=== PATIENT | male | born 1935 | race Caucasian/White ===

== ENCOUNTER 2016-11-23 23:33 | Inpatient (IN) | payer OTHER ==
[~2016-11-23] VITALS: Ht 180.3 cm; Wt 104.0 kg
--- NOTE | ~2016-11-23 | H ---
[facility] [place] [address] HISTORY AND PHYSICAL Name: MIGDALIA LOZANO Room #: 448-P ADM IN M.R.#: [id number] Admission: 11/24/16 Attend Phys: Ania Troy MD Discharge: Date of : 39 Report #: [id number] THIS REPORT FOR: //name// CC: BRII Troy DATE OF SERVICE: 11/24/2016 CHIEF COMPLAINT: Speech difficulty and confusion. HISTORY OF PRESENT ILLNESS: The patient is a 81-year-old gentleman known to me from his hospitalization at [facility]. The patient underwent elective bilateral total knee arthroplasty on 11/23/2016. I had seen him postop and he was doing well. The patient was ambulating with assistance of the therapist. On the evening of November 23, 2016, the patient was noted to have speech difficulty and was not able to make a full sentence. He appeared to be confused. There was some suspicion of a possible stroke and hence patient was transferred to [facility]. The patient had a stroke workup done, which was essentially negative with a CT scan showing chronic white matter changes with no evidence of any acute stroke or acute process. He was also noted to have hyponatremia with a sodium of 120. He did also develop some hypoxia while resting and a CT of the chest done did not reveal any pulmonary embolism, but there was evidence of atelectasis with small pleural effusion. The patient has been admitted to the hospital and is currently on normal saline IV fluids. The patient seems to be still oriented only to person. He does seem to make a sentence, but is still not able to express himself clearly. He denied having any headache or any focal weakness. PAST MEDICAL HISTORY: Significant history of amnesia, memory loss, convulsions, benign prostatic hypertrophy, history of dysphagia, hyperlipidemia, anemia, benign prostatic hypertrophy, hypertension, peripheral neuropathy, coronary artery disease and sick sinus syndrome. PAST SURGICAL HISTORY: Pacemaker implantation. ALLERGIES: He is not known to be allergic to medication. MEDICATION: He was currently on was Keppra 500 mg at bedtime, lisinopril 20 mg daily, amlodipine 5 mg daily and aspirin and patient had received hydrocodone at the orthopedic hospital and the last dose was given about 9:00 on morning of 11/23/2016. SOCIAL HISTORY: He is and drinks alcohol occasionally, does not smoke. He has a friend who was his power of nuclear plant instrument technician and decision maker. [place] [address] HISTORY AND PHYSICAL Name: MIGDALIA LOZANO Room #: 448-P [facility] IN ..#: [id number] Admission: 11/24/16 Attend Phys: Ania Troy MD Discharge: Date of : 39 Report #: [id number] the bedside. REVIEW OF SYSTEMS: He denied having any headache, visual symptoms, nausea, vomiting, chest pain or breathing difficulty or cough. He denied having any abdominal pain or urinary symptoms. The patient reported the pain was controlled. PHYSICAL EXAMINATION: GENERAL: Pleasant elderly gentleman who was oriented only to person. He was following commands. He was in no distress. VITAL SIGNS: He was afebrile with a temperature of 36.6, pulse of 71, respiratory rate 18, blood pressure 149/66, oxygen saturation 93% on 4 liters of oxygen. HEENT: Skull was atraumatic. There were no pallor, no icterus. Mucosa was moist. NECK: Supple. LUNGS: Clear with no wheezing or crackles. There was some diminished air entry in the lung bases. HEART: First and second heart sound, which was normal. ABDOMEN: Soft, it was nontender, bowel sounds normally heard. EXTREMITIES: Examined extremities. The patient had 1+ anemia of his lower extremities. NEUROLOGIC: The patient's speech was still slurred and he had difficulty forming words, but his comprehension was good. He was oriented only to person. All other cranial nerve examination was normal. The patient was moving all 4 extremities equally and normally and there were no focal deficits noted. The patient had dressing on both his knees. There was lower extremity examination revealed 1+ pitting edema of his lower extremities. LABORATORY DATA: On admission showed a sodium of 121, potassium 3.7, chloride of 90, bicarbonate of 23, BUN of 14, creatinine of 0.8 and a glucose was 120, calcium 7.5. Blood gas showed a pH of 7.4, pCO2 of 28, pO2 of 67.5 on room air. Hemoglobin was 11.6, hematocrit 34.9, WBC was 15. CT of the head did not reveal any acute process. There was no acute stroke or bleed noted. A CT of the chest did not reveal any acute PE and there was bilateral atelectasis with small pleural effusion. ASSESSMENT: 1. Metabolic encephalopathy. 2. Hyponatremia. 3. Bilateral total knee arthroplasty. 4. Hypertension. 5. Benign prostatic hypertrophy. 6. Coronary artery disease. 7. Memory loss. 8. History of seizure disorder. [facility] [address] [place] [address] HISTORY AND PHYSICAL Name: MIGDALIA LOZANO Room #: 448-P [facility] IN .R.#: [id number] Admission: 11/24/16 Attend Phys: Ania rToy MD Discharge: Date of : 39 Report #: [id number] PLAN: To restart his blood pressure medications and the Keppra. We will start him on Lovenox for DVT prophylaxis and have physical therapy start him on rehab. We will continue the ice packs and start him on tramadol for pain control and keep him on a regular diet as tolerated. Would also check his urine sodium and urine osmolality. We will stop his IV fluids for now. By: [phone] Ania Troy MD /nt
--- NOTE | ~2016-11-23 | EKG ---
[address] [place] [address] ELECTROCARDIOGRAM REPORT Name: MIGDALIA LOZANO Room #: 448-P [facility] IN M.R.#: [id number] Admission: 11/24/16 Attend Phys: Roger Munroe MD Discharge: Date of : 39 Report #: [id number] THIS REPORT FOR: //name// [facility] ED Test Date: 2016-11-23 Test Time: 23:45:48 Pat Name: MIGDALIA LOZANO Department: Room: [facility] Gender: M Support Services Tech: KATELYN : 1935 Requested By: Tree Espinoza Order Number: [id number] MD: Dale Lugo Measurements Intervals Holcomb Rate: 75 P: 7 KS: 244 QRS: 64 QRSD: 149 T: 28 QT: 397 QTc: 444 Interpretive Statements Sinus rhythm Prolonged KS interval Right bundle branch block No previous ECG available for comparison Electronically Signed On 11-24-2016 7:53:06 CDT by Dale Lugo [email or web address] <ELECTRONICALLY SIGNED> By: Dale Lugo MD, [facility] 11/24/16 [id number] Dale Lugo MD, FACC /EPI
[2016-11-23 23:34] VITALS: BP 169/81
[2016-11-23 23:51] LABS: POC CREATININE 0.9 mg/dL (0.6-1.3); POC HEMOGLOBIN 11.6 g/dL (14.0-18.0)
[2016-11-23 23:55] LABS: HEMATOCRIT 33.2 % (42.0-52.0); HEMOGLOBIN 11.6 gm/dL (14.0-18.0); MANUAL DIFF YES; MCH 30.9 pg (26.0-34.0); MCV 88.3 fL (80.0-100.0); PLATELET COUNT 214 thou/uL (150-400); RBC 3.76 mil/uL (4.50-6.00); RDW 13.3 % (10.5-14.5)
[2016-11-24 00:03] LABS: ANION GAP 9 mmol/L (7-16); BUN 16 mg/dL (7-18); CALCIUM 7.7 mg/dL (8.5-10.1); CHLORIDE 88 mmol/L (98-107); CO2 23 mmol/L (21-32); GLUCOSE 134 mg/dL (74-106); POTASSIUM 3.7 mmol/L (3.5-5.1); SODIUM 120 mmol/L (136-145)
[2016-11-24 00:09] LABS: ALKALINE PHOSPHATASE 59 U/L (46-116); INR 1.1; PROTIME 11.5 Seconds (9.3-11.4); SGOT 39 U/L (15-37); SGPT 24 U/L (30-65); TOTAL BILIRUBIN 1.4 mg/dL (<0.1-1.0); TROPONIN-I < 0.04 ng/mL (<0.04-0.07)
[2016-11-24 00:26] LABS: ABSOLUTE NEUTROPHILS 13.1 thou/uL (1.4-8.2); ANISOCYTOSIS SLIGHT; TOTAL CELL COUNT 100
[2016-11-24] MEDS ORDERED: KEPPRA 500 MG500 M1 (00:58)
[2016-11-24] MEDS ORDERED: NORVASC5 MG PO (00:58)
[2016-11-24] MEDS ORDERED: LISINOPRIL20 MG PO (00:58)
[2016-11-24 01:55] LABS: ABG SAMPLE TYPE ARTERIAL; BE(vivo) -1.9 mmol/L (-2 to +3); HCO3 20.6 mmol/L (22.0-26.0); LACTATE 1.55 mmol/L (0.5-2.0); O2Hb 93.6 % (92.0-98.0); PCO2 28.6 mmHg (35.0-45.0); PO2 67.5 mmHg (80.0-100.0); pH 7.475 (7.360-7.450); sO2 94.9 % (92.0-98.0); tCO2 21.5 mmol/L (24.0-30.0)
[2016-11-24 01:56] LABS: STICK SITE R.BRACHIAL
[2016-11-24 02:10] VITALS: BP 151/69
[2016-11-24 02:40] VITALS: BP 161/87
[2016-11-24 07:48] VITALS: BP 149/66
[2016-11-24 08:14] LABS: CALCIUM 7.5 mg/dL (8.5-10.1); CREATININE 0.8 mg/dL (0.7-1.3); POTASSIUM 3.7 mmol/L (3.5-5.1)
[2016-11-24 14:10] LABS: URINE BILIRUBIN NEGATIVE (Negative); URINE BLOOD NEGATIVE (Negative); URINE COLOR YELLOW; URINE GLUCOSE-RANDOM* NEGATIVE (Negative); URINE KETONES 1+ (Negative); URINE NITRITE NEGATIVE (Negative); URINE PROTEIN (DIPSTICK) NEGATIVE (Negative); URINE UROBILINOGEN 0.2 E.U./dl (0.2-1.0)
[2016-11-24 16:25] VITALS: BP 148/93
== END 2016-11-24 18:15 | disposition short-term general hospital (02) | DRG 640 ==
LOC: ER 23:33 → 4S 11-24 01:48 → EROBS 11-24 01:48 → 4S 11-24 02:11
PROVIDERS: Internal Medicine; Internal Medicine Geriatric Medicine; Physician Assistant
DX: E87.1 Hypo-osmolality and hyponatremia (principal); G93.41 Metabolic encephalopathy; R47.01 Aphasia; N40.0 Benign prostatic hyperplasia without lower urinary tract symptoms; E78.5 Hyperlipidemia, unspecified; I10 Essential (primary) hypertension; I49.5 Sick sinus syndrome; I25.10 Atherosclerotic heart disease of native coronary artery without angina pectoris; Z96.653 Presence of artificial knee joint, bilateral; G40.909 Epilepsy, unspecified, not intractable, without status epilepticus; R41.3 Other amnesia; Z95.0 Presence of cardiac pacemaker
CPT/HCPCS: 10100